=== PATIENT | female | born 1950 | race Caucasian/White ===

== ENCOUNTER → 2024-11-04 13:11 | Outpatient (REF) | payer MEDICARE, BC, SELFPAY | LOC: RAD 13:11 | PROVIDERS: ATTENDING PHYSICIAN Internal Medicine Endocrinology, Diabetes & Metabolism; FAMILY PHYSICIAN Family Medicine | DX: M81.0 Age-related osteoporosis without current pathological fracture (principal) | CPT/HCPCS: 77080 ==

== ENCOUNTER 2025-02-04 14:51 | Emergency (ER) | payer MEDICARE, BC, SELFPAY ==
[2025-02-04 15:00] VITALS: BP 141/75; BMI 18.2
--- NOTE | 2025-02-04 15:59 | ED.GENMED ---
History of Present Illness
General
Chief Complaint: Skin Problem
Time Seen by Provider: 02/04/25 15:13
History of Present Illness
History of Present Illness:
Note:
CHIEF COMPLAINT(S)
Laceration to the right leg.
HISTORY OF PRESENT ILLNESS
The patient is a 75-year-old female with a history of lung disease, on apixaban (Eliquis) for anticoagulation, presenting with a laceration to the right leg. The injury occurred while she was getting out of a car; her leg hit the edge of a pod,
resulting in the laceration. The patient reports no associated pain or history of a fall. The assessment of the laceration revealed it to be U-shaped on the right lateral lower extremity, involving subcutaneous fat only, with some thinning towards
the edges. There is lower extremity edema and oozing of thin fluid from the wound, but no active bleeding. The patient is on supplemental oxygen due to chronic lung disease. She received her last tetanus shot last year.
CHRONIC MEDICAL CONDITIONS SIGNIFICANTLY AFFECTING CARE
Chronic conditions affecting care: lung disease requiring supplemental oxygen, anticoagulation therapy with apixaban (Eliquis).
IMMUNIZATION HISTORY
Tetanus booster received last year.
PHYSICAL EXAM
- Skin: U-shaped laceration on the right lateral lower extremity, superficial, involving subcutaneous fat with thin edges, some oozing of thin fluid, no active bleeding.
- Extremities: Mild lower extremity edema.
- Neurological: Awake, alert, and oriented. Motor examination is grossly non-focal. Cranial nerves are intact.
- Respiratory: No respiratory distress observed.
PLAN
The plan includes using a skin adhesive with a mesh for the laceration to avoid tearing the skin with sutures due to its superficial nature and the patients anticoagulation status. Monitoring and follow-up for any signs of infection or complications
related to the wound are recommended.
DIFFERENTIAL DIAGNOSIS
The Differential Diagnosis includes, in no particular order and is not limited to:
- Simple laceration
- Contusion
- Superficial hematoma
- Deep vein thrombosis (lower extremity edema)
- Infection (cellulitis)
- Venous stasis
- Anticoagulation-related bleeding
- Peripheral edema due to heart failure
- Localized dermatitis
- Erythema nodosum
Past History
Past History
ED Past Medical History: Arrthythmia (Atrial fib), Asthma, COPD, GERD (Hiatal hernia), Hypercholesterolemia, NV and Other (pneumonia stroke or mini stroke, patient is on home oxygen, hiatal hernia, nodules of the, hearing impairment, fractures)
ED Past Surgical History: Other (Hiatal hernia repair)
Patient has exhibited threatening behavior?: No
PSI?: No
Social History
Tobacco: Non-smoker
Alcohol: Occasional
Drug: None
Personal:
Living: with family
Employment: Retired
Family History
Family History: Other (Noncontributory)
Phy Exam
Physical Exam
Physical Exam:
.
Course
Vital Signs
Initial and Last Documented VS:
Initial Vital Signs
Pulse Ox
92
02/04/25 14:59
Last Documented Vital Signs
Temp Pulse Resp BP Pulse Ox
98.5 F 82 16 141/75 96
02/04/25 15:00 02/04/25 15:00 02/04/25 15:00 02/04/25 15:00 02/04/25 16:03
Procedures
Laceration Closure
Right Lower Leg:
Status of Wound: clean
Size of Wound in cm: 4
Description of Wound Edges: flap-well vascularized
Preparation: cleaned with saline
Type of Closure: Dermabond-skin glue (with mesh)
*Pulse Oximetry
SaO2: 96
Nasal Cannula flow liters per minute: 4
Patient hypoxic: no (Patient chronically on O2 so 96% is stable on her 4 L)
*Critical Care Note
Total Time (30-74mins, 75-104mins- exclusive of procedures): Not Applicable
Update Note
Update Note:
DISPOSITION
The patient appears well and follows up with her PCP is scheduled.
PLAN
Use of dermobond with mesh for the repair of the laceration.
PATIENT EDUCATION AND COUNSELING
Advised to closely monitor for signs of infection and to return if any concerning signs develop.
MEDICAL DECISION MAKING
1. Number & Complexity of Problems:
- Chronic conditions affecting care: Chronic lung disease requiring supplemental oxygen, anticoagulation therapy with apixaban (Eliquis).
- Differential Diagnoses considered.
2. Data Reviewed: Assessment of laceration and complications due to anticoagulation and lung disease.
PATHOLOGIES TO CONSIDER
- Deep vein thrombosis (lower extremity edema).
- Infection (cellulitis).
- Anticoagulation-related bleeding.
- Peripheral edema due to possible heart failure.
ED Attending Note
-
Portions of this chart may have been created with voice recognition software.� Occasional wrong word or��sound alike� substitutions may have occurred due to the inherent limitations of voice recognition software.
Discharge Plan
Departure
Patient Disposition: Home (Routine Discharge)
Date of Disposition: 02/04/25
Time of Disposition: 16:02
Patient with high blood pressure during this ER visit?: Yes
Discharge Problem:
Laceration of leg
Instructions: Laceration Repair With Glue ED, [facility], BLOOD PRESSURE, Laceration
Prescriptions:
No Action
calcium carbonate-vitamin D3 600 mg-5 mcg (200 unit) Tablet
1 tab PO BID
Eliquis 5 mg Tablet
5 mg PO BID
diltiazem HCl 180 MG capsule,extended release 24hr
360 mg PO DAILY
Dulera 200-5 mcg/actuation Hfa Aerosol Inhaler
2 puff INHALATION R BID
multivitamin Tablet
1 tab PO DAILY
ipratropium-albuterol 0.5 mg-3 mg(2.5 mg base)/3 mL Solution For Nebulization
3 ml INHALATION R TID
atorvastatin 10 MG tablet
10 mg PO HS Qty: 30 0RF
cyanocobalamin (vitamin B-12) 1,000 MCG tablet
1,000 mcg PO DAILY Qty: 30 0RF
Activity Restrictions/Additional Instructions:
Please see your doctor or wound care in the next 1 week for follow-up reevaluation. Return immediately for redness, drainage from the wound, increased swelling or any other concerns. Do not put any Vaseline or oil-based ointments near the wound.
Interventions
Interventions:
*Risk Screen - Suicide Last Done: 02/04/25 15:00
*General Assessment Last Done: 02/04/25 15:00
*Neglect/Abuse Screening Last Done: 02/04/25 15:00
*ED- Fall Risk Assessment Last Done: 02/04/25 15:00
*ED COVID-19 Vaccine History Last Done: 02/04/25 15:00
*Nursing Disposition Last Done: 02/04/25 16:21
ED-Skin Assessment Last Done: 02/04/25 15:00
Discharge Date and Time
Discharge Date/Time: 02/04/25 16:40
Print Language: [place]
== END 2025-02-04 16:40 | disposition home or self-care (01) ==
LOC: EMR 14:51
PROVIDERS: EMERGENCY PHYSICIAN Emergency Medicine; FAMILY PHYSICIAN Family Medicine
DX: S81.811A Laceration without foreign body, right lower leg, initial encounter (principal); W22.8XXA Striking against or struck by other objects, initial encounter; E78.00 Pure hypercholesterolemia, unspecified; J44.89 Other specified chronic obstructive pulmonary disease; Z86.73 Personal history of transient ischemic attack (TIA), and cerebral infarction without residual deficits; Z79.01 Long term (current) use of anticoagulants
CPT/HCPCS: 12002; 99282